=== PATIENT | male | born 1975 | race Caucasian/White ===

== ENCOUNTER 2023-06-21 11:25 | Inpatient (IN) | payer SELFPAY ==
[~2023-06-21] VITALS: Ht 180 cm; Wt 86.1 kg
--- NOTE | 2023-06-21 11:31 | ED Chest Pain ---
General Stated Complaint: CHEST PAIN History of Present Illness Date Seen by Provider: Jun 21, 2023 Time Seen by Provider: 11:31 Initial Comments 47-year-old male brought in by EMS with chest pain. Patient developed chest pain approximately 10:10 AM. Patient reports that it started out with pain in his mid chest and then he developed pain that went to his left shoulder left arm and tingling down his arm. Patient denies any prior history of cardiac events. EMS provided patient with 324 mg of aspirin and put on Nitropaste. He reports that the Nitropaste gave him significant relief. EKG in the field was faxed that showed likely ST elevation in the lateral leads. Allergies and Home Medications Allergies Coded Allergies: No Known Drug Allergies (Unverified , 06/21/23) Patient Home Medication List Home Medication List Reviewed: Yes Review of Systems Review of Systems Constitutional: see HPI Respiratory: Denies Cough Cardiovascular: Chest Pain Gastrointestinal: See HPI Genitourinary: See HPI Musculoskeletal: see HPI Skin: see HPI Physical Exam Vital Signs Vital Signs - First Documented 06/21/23 11:28 Pulse 67 Resp 18 B/P (MAP) 181/125 (143) Pulse Ox 98 Capillary Refill : Height, Weight, BMI Height: '" Weight: lbs. oz. kg; BMI Method: General Appearance: Mild Distress Neck: Normal Inspection Respiratory: Lungs Clear, Normal Breath Sounds Cardiovascular: Regular Rate, Rhythm, No Edema Gastrointestinal: Non Tender, Soft Extremity: Normal Capillary Refill, Normal Inspection, Normal Range of Motion Neurologic/Psychiatric: Alert, Oriented x3, No Motor/Sensory Deficits Critical Care Note Critical Care Total Time (minutes) 20 Progress/Results/Core Measures Results/Orders Lab Results Laboratory Tests Test 06/21/23 11:38 Range/Units White Blood Count 6.5 4.3-11.0 10^3/uL Red Blood Count 4.96 4.30-5.52 10^6/uL Hemoglobin 15.3 13.3-17.7 g/dL Hematocrit 43 40-54 % Mean Corpuscular Volume 87 80-99 fL Mean Corpuscular Hemoglobin 31 25-34 pg Mean Corpuscular Hemoglobin Concent 36 32-36 g/dL Red Cell Distribution Width 11.8 10.0-14.5 % Platelet Count 369 130-400 10^3/uL Mean Platelet Volume 9.0 9.0-12.2 fL Immature Granulocyte % (Auto) 0 % Neutrophils (%) (Auto) 69 42-75 % Lymphocytes (%) (Auto) 23 12-44 % Monocytes (%) (Auto) 6 0-12 % Eosinophils (%) (Auto) 1 0-10 % Basophils (%) (Auto) 1 0-10 % Neutrophils # (Auto) 4.5 1.8-7.8 10^3/uL Lymphocytes # (Auto) 1.5 1.0-4.0 10^3/uL Monocytes # (Auto) 0.4 0.0-1.0 10^3/uL Eosinophils # (Auto) 0.1 0.0-0.3 10^3/uL Basophils # (Auto) 0.0 0.0-0.1 10^3/uL Immature Granulocyte # (Auto) 0.0 0.0-0.1 10^3/uL Prothrombin Time 12.5 12.2-14.7 SEC INR Comment 0.9 0.8-1.4 Activated Partial Thromboplast Time 34 24-35 SEC Sodium Level 135 135-145 MMOL/L Potassium Level 3.7 3.6-5.0 MMOL/L Chloride Level 103 98-107 MMOL/L Carbon Dioxide Level 16 L 21-32 MMOL/L Anion Gap 16 H 5-14 MMOL/L Blood Urea Nitrogen 12 7-18 MG/DL Creatinine 0.85 0.60-1.30 MG/DL Estimat Glomerular Filtration Rate 107 BUN/Creatinine Ratio 14 Glucose Level 138 H 70-105 MG/DL Calcium Level 9.7 8.5-10.1 MG/DL Corrected Calcium 8.5-10.1 MG/DL Magnesium Level 2.1 1.6-2.4 MG/DL Total Bilirubin 0.6 0.1-1.0 MG/DL Aspartate Amino Transf (AST/SGOT) 22 5-34 U/L Alanine Aminotransferase (ALT/SGPT) 27 0-55 U/L Alkaline Phosphatase 77 40-136 U/L Myoglobin 63.7 10.0-92.0 NG/ML Troponin I 0.057 H <0.028 NG/ML Total Protein 8.4 H 6.4-8.2 GM/DL Albumin 4.8 H 3.2-4.5 GM/DL My Orders Orders - MOLINA,KOFFI L DO Ekg Tracing (06/21/23 11:27) Cbc And Automated Diff (06/21/23 11:31) Magnesium (06/21/23 11:31) Chest 1 View, Ap/Pa Only (06/21/23 11:31) Ekg Tracing (06/21/23 11:31) Comprehensive Metabolic Panel (06/21/23 11:31) Myoglobin Serum (06/21/23 11:31) Protime With Inr (06/21/23 11:31) Partial Thromboplastin Time (06/21/23 11:31) Monitor-Rhythm Ecg Trace Only (06/21/23 11:31) Lipid Panel (06/22/23 06:00) Ed Iv/Invasive Line Start (06/21/23 11:31) Troponin I Tama (06/21/23 11:31) Fentanyl Injection (Fentanyl Injection (06/21/23 11:33) Initiate Heparin Acs Protocol (06/21/23 11:50) Clopidogrel Tablet (Clopidogrel Tablet) (06/21/23 12:00) Heparin (Bolus Per Protocol) (Heparin (B (06/21/23 12:00) Heparin Drip 62616 Unit/500ml (Heparin (06/21/23 12:00) Heparin (Bolus Per Protocol) (Heparin (B (06/21/23 12:00) Initiate Heparin Acs Protocol (06/21/23 11:53) Vital Signs/I&O 06/21/23 06/21/23 11:28 11:58 Pulse 67 67 Resp 18 18 B/P (MAP) 181/125 (143) 181/125 Pulse Ox 98 98 Progress Progress Note : Progress Note Patient with EKG that was questionable for ST elevation in leads V3 through 6 versus early repolarization. Based on patient's his symptoms of chest pain with radiation to the left arm neck and improvement with nitro patient to be taken to the Game Designer/Creative Director. I discussed with Dr. Perla who was in agreement. Patient was given Plavix and started on a heparin drip and then taken to the Game Designer/Creative Director. He was stable while in the ER. Departure Impression Primary Impression: ST elevation MO (STEMI) Qualified Codes: I21.3 - ST elevation (STEMI) myocardial infarction of unspe cified site Disposition: ADMITTED INPATIENT Condition: Critical KOFFI MOLINA DO Jun 21, 2023 11:31
[2023-06-21] MEDS: fentaNYL INJECTION 100 MCG/2 ML VIAL IVP STA ×2 (11:45→11:59)
[2023-06-21 11:48] LABS: BASOPHILS % (AUTO) 1 % (0-10); EOSINOPHILS # (AUTO) 0.1 10^3/uL (0.0-0.3); EOSINOPHILS % (AUTO) 1 % (0-10); HEMATOCRIT 43 % (40-54); HEMOGLOBIN 15.3 g/dL (13.3-17.7); LYMPHOCYTES # (AUTO) 1.5 10^3/uL (1.0-4.0); LYMPHOCYTES % (AUTO) 23 % (12-44); MEAN CORPUSCULAR HEMOGLOBIN 31 pg (25-34); MEAN CORPUSCULAR HGB CONC 36 g/dL (32-36); MEAN CORPUSCULAR VOLUME 87 fL (80-99); MONOCYTES # (AUTO) 0.4 10^3/uL (0.0-1.0); MONOCYTES % (AUTO) 6 % (0-12); NEUTROPHILS # (AUTO) 4.5 10^3/uL (1.8-7.8); NEUTROPHILS % (AUTO) 69 % (42-75); PLATELET COUNT 369 10^3/uL (130-400); WHITE BLOOD COUNT 6.5 10^3/uL (4.3-11.0)
[2023-06-21] MEDS ORDERED: NITRO DRIP 25000 MCG/D5W 250 ML IV ONE (11:50)
[2023-06-21] MEDS ORDERED: LIDOCAINE 1% INJ 20 ML VIAL ONE (11:50)
[2023-06-21] MEDS ORDERED: HEParin 1000 UNIT/ML (10ML VIAL) FOR BOLUS ONE (11:50)
[2023-06-21] MEDS ORDERED: NS IV 1000 ML 1,000 ML ONE (11:50)
[2023-06-21] MEDS ORDERED: MIDAZOLAM INJ 5 MG/5 ML VIAL ONE (11:50)
[2023-06-21] MEDS ORDERED: fentaNYL INJECTION 100 MCG/2 ML VIAL ONE (11:50)
[2023-06-21] MEDS ORDERED: HEParin (CATH LAB) 2,000 ML IV ONE (11:50)
[2023-06-21] MEDS ORDERED: EPTIFIBATIDE BOLUS 20 ML IV ONE (11:51)
[2023-06-21 11:55] LABS: ALBUMIN 4.8 GM/DL (3.2-4.5)
[2023-06-21 11:56] LABS: CHLORIDE 103 MMOL/L (98-107); POTASSIUM 3.7 MMOL/L (3.6-5.0); SODIUM 135 MMOL/L (135-145)
[2023-06-21 11:57] LABS: CALCIUM 9.7 MG/DL (8.5-10.1); INR 0.9 (0.8-1.4); PROTHROMBIN TIME PATIENT 12.5 SEC (12.2-14.7)
[2023-06-21 11:58] VITALS: BP 181/125
[2023-06-21 11:58] LABS: GLUCOSE 138 MG/DL (70-105); TOTAL PROTEIN 8.4 GM/DL (6.4-8.2)
--- NOTE | 2023-06-21 11:58 | Diagnostic Imaging Report ---
INDICATION: Chest pain. COMPARISON: None FINDINGS: Single frontal radiographic view of the chest was obtained and demonstrates normal cardiac silhouette and pulmonary vasculature. Cluster micronodules is noted within the right upper lobe. These appear to be likely calcified. Remainder of the lungs are clear. There is no focal consolidation, large effusion, or pneumothorax. Osseous structures show no gross acute abnormalities. IMPRESSION: 1. No evidence of failure or focal infiltrate. 2. Probable cluster of calcified granulomas within the right upper lobe. Further characterization with CT of the chest however is advised and could be performed on a nonemergent basis. Dictated by: Dictated on workstation # [id number]
[2023-06-21 11:59] LABS: CARBON DIOXIDE 16 MMOL/L (21-32)
[2023-06-21 12:00] LABS: BILIRUBIN,TOTAL 0.6 MG/DL (0.1-1.0)
[2023-06-21] MEDS ORDERED: HEParin 1000 UNIT/ML (10ML VIAL) FOR BOLUS IV SCH (12:00)
[2023-06-21] MEDS ORDERED: HEParin 1000 UNIT/ML (10ML VIAL) FOR BOLUS IV PRN (12:00)
[2023-06-21] MEDS ORDERED: HEParin DRIP 25000 UNIT/500ML 500 ML IV SCH (12:00)
[2023-06-21] MEDS ORDERED: CLOPIDOGREL 300 MG TABLET PO ONE (12:00)
[2023-06-21 12:02] LABS: ALKALINE PHOSPHATASE 77 U/L (40-136); CREATININE SERUM 0.85 MG/DL (0.60-1.30); GFR ESTIMATED 107
[2023-06-21 12:03] LABS: BUN/CREATININE RATIO 14
[2023-06-21 12:05] LABS: ALANINE AMINOTRANSFERASE 27 U/L (0-55); MAGNESIUM 2.1 MG/DL (1.6-2.4)
[2023-06-21] MEDS ORDERED: niCARdipine IV PYXIS DRIP KIT = 50 MG X 2 VIALS ONE (12:37)
[2023-06-21] MEDS ORDERED: NS (IVPB) 250 ML 250 ML ONE (12:37)
--- NOTE | 2023-06-21 13:22 | Cardiac Cath Report ---
CARDIAC CATHETERIZATION DATE OF PROCEDURE: 06-21-23 INDICATION: Acute anterior wall STEMI HISTORY: The patient is a 47 year old male with acute anterior wall STEMI PROCEDURES PERFORMED: 1. Card cath and LV angio 2. PCI to LAD PROCEDURE DESCRIPTION: After informed consent and in the fasting state, left heart catheterization was performed through the R femoral artery utilizing a 6 [place] system by percutaneous approach. 6F JL4 guide of L cor angio, 6F JR4 for R cor angio, 6F pigtail of LHC and LV angio HEMODYNAMICS: LVEDP (post cor angio and PCI) was 14 mmHg, no significant pressure gradient on pullback across the aortic valve CORONARY ANGIOGRAPHY: Cor calcium present in all coronary vessels Left main coronary artery: Ok Left anterior descending coronary artery: 99% mid-vessel stenosis with LUISA 2 antegrade flow, large D1 with mild plaques, small D2 with 90% ostial stenosis Left circumflex coronary artery: small, non-dominant, diffuse plaques Right coronary artery: large, dominant, 70% distal stenosis (in the posterolateral portion of RCA) LV ANGIO: LVEF 50% with apical hypokinesis PERCUTANEOUS CORONARY INTERVENTION: Guide: 6F JL4 Wire: BMW Balloon: 2.5 x 20 Stent: Skypoint 2.5 x 18 (deployed at 12 alondra) Pre-PCI: 99% mid LAD with LUISA 2 flow Post-PCI: 0% residual with LUISA 3 flow [id number] time: 50 min IMPRESSION: 1. Multivessel CAD as noted above 2. Successful PCI to culprit lesion: mid LAD 99% with LUISA 2 flow -> 0% residual with LUISA 3 flow (post deployment of Skypoint 2.5 x 18 mm LIZY) 3. LVEDP 14 mmHg 4. LVEF 50% with apical hypokinesis JOSE SAVAGE MD FACP [facility] Jun 21, 2023 13:22
--- NOTE | 2023-06-21 13:40 | Cardiology History & Physical ---
HPI-Cardiology Cardiology H&P Date of Admission 06/21/23 Primary Care Physician Attending Physician: Magnolia Petty MD, MA [facility] Attending Physician Consulting Physician ORI CC: Chest pain HPI 47 yo man with onset of chest pain approx 1.5 hours prior to presentation to our ER. Chest pain mid-sternal, L parasternal, and in the L shoulder with radiation down the arm, mod to mod-sev in intensity, associated with some diaphoresis, no palp or syncope, never experienced before, improved with nitro given by EMT. ECG obtained by EMT showed ST elevation in ángel-lat leads. Given ASA 324, clopidogrel 600, and heparin 5000 in the ER and taken to the photo lab specialist for emergency cath. We did discuss the rationale, procedure, risks, benefits, potential complications, and alternatives with Mr. Johnson prior to cath and he provided informed consent for cath and, if needed, ad hoc PCI. Culprit lesion was found to be mid-LAD 99% stenosis that was successfully intervened on. Review of Systems-Cardiology Review of Systems Constitutional: No lightheadedness, No tiredness, No weight loss, No weight gain Eyes: No vision change Ears/Nose/Throat: No ear discharge, No nasal drainage, No recent hearing loss Respiratory: No shortness of breath, No stridor, No wheezing Cardiovascular: As described under HPI, palpitations Gastrointestinal: No diarrhea, No nausea Genitourinary: No dysuria, No hematuria, No urine frequency changes Musculoskeletal: No back pain Skin: No rash, No ulcerations Psychiatric/Neurological: No seizure, No focal weakness, No syncope Hematologic: No bleeding abnormalities LUX-Mczqzl-Scylgk Hx Patient Social History Smoking Status: Former Smoker Alcohol Use?: Yes Past Medical History PMH As described under Assessment. Family Medical History Family Medical History: He does not report fam h/o early CAD or SCD Allergies and Home Medications Allergies Coded Allergies: No Known Drug Allergies (Unverified , 06/21/23) Patient Home Medication List Home Medication List Reviewed: Yes Physical Exam-Cardiology Physical Exam Vital Signs/I&O 06/21/23 06/21/23 11:28 11:58 Pulse 67 67 Resp 18 18 B/P (MAP) 181/125 (143) 181/125 Pulse Ox 98 98 Capillary Refill : Constitutional: AAO x 3, well-developed, well-nourished HEENT: EOMI; No xanthelasmas are seen Neck: carotid pulses are 2 + bilaterally, with good upstrokes Respiratory: No accessory muscle use, No respiratory distress; chest expansion is symmetric, chest is bilaterally symmetric, other (good, bilat air entry) Cardiovascular: regular rate-rhythm, S1 and S2, systolic murmur (soft TENNILLE at card base) Gastrointestinal: No tender; soft; No guarding, No rebound; audible bowel sounds Extremities: No clubbing, No significant edema Neurologic/Psychiatric: oriented x 3, other (moves all limbs equally) Skin: normal color, warm/dry; No rash on exposed areas, No ulcerations on exposed areas Data Review Labs Laboratory Tests 06/21/23 11:38: White Blood Count 6.5, Red Blood Count 4.96, Hemoglobin 15.3, Hematocrit 43, Mean Corpuscular Volume 87, Mean Corpuscular Hemoglobin 31, Mean Corpuscular Hemoglobin Concent 36, Red Cell Distribution Width 11.8, Platelet Count 369, Mean Platelet Volume 9.0, Immature Granulocyte % (Auto) 0, Neutrophils (%) (Auto) 69, Lymphocytes (%) (Auto) 23, Monocytes (%) (Auto) 6, Eosinophils (%) (Auto) 1, Basophils (%) (Auto) 1, Neutrophils # (Auto) 4.5, Lymphocytes # (Auto) 1.5, Monocytes # (Auto) 0.4, Eosinophils # (Auto) 0.1, Basophils # (Auto) 0.0, Immature Granulocyte # (Auto) 0.0, Prothrombin Time 12.5, INR Comment 0.9, Activated Partial Thromboplast Time 34, Sodium Level 135, Potassium Level 3.7, Chloride Level 103, Carbon Dioxide Level 16L, Anion Gap 16H, Blood Urea Nitrogen 12, Creatinine 0.85, Estimat Glomerular Filtration Rate 107, BUN/Creatinine Ratio 14, Glucose Level 138H, Calcium Level 9.7, Corrected Calcium , Magnesium Level 2.1, Total Bilirubin 0.6, Aspartate Amino Transf (AST/SGOT) 22, Alanine Aminotransferase (ALT/SGPT) 27, Alkaline Phosphatase 77, Myoglobin 63.7, Troponin I 0.057H, Total Protein 8.4H, Albumin 4.8H Laboratory Tests 06/21/23 11:38 A/P-Cardiology Assessment/Admission Diagnosis Acute anterior STEMI - Card cath on : Cor calcium present in all coronary vessels. Left main coronary artery: Ok. Left anterior descending coronary artery: 99% mid-vessel stenosis with LUISA 2 antegrade flow, large D1 with mild plaques, small D2 with 90% ostial stenosis. Left circumflex coronary artery: small, non-dominant, diffuse plaques. Right coronary artery: large, dominant, 70% distal stenosis (in the posterolateral portion of RCA). LVEF 50% with apical hypokinesis. LVEDP 14 mmHg - PCI on 06/21/23: mid-LAD 99% with LUISA 2 flow -> 0% residual with LUISA 3 flow (post deployment of Skypoint 2.5 x 18 mm LIZY) Admission Status: Inpatient Order (span 2 midnights) Reason for Inpatient Admission: STEMI Discussion and Recomendations * DAPT * Statin * Beta-daniel * Discussed findings in detail with him Clinical Quality Measures AMI/AHF: ASA po Prior to arrival: Yes MAGNOLIA PETTY MD FACP [facility] Jun 21, 2023 13:40
--- NOTE | 2023-06-21 14:13 | Tele-ICU Consult ---
History of Present Illness History of Present Illness Date Seen by Provider: Jun 21, 2023 Time Seen by Provider: 14:08 Date of Admission [facility] Critical Care Consult 47yo M came to ED with cc of severe chest pain mid sternal and radiating down left arm, GIven ASA/Plavix/Je[arom amd semt tp CC: found to have 99% lesion in LAD, underwent PCTA which was successful. EKG showed ST seg elevation in aterior lateral leads Currently on ASA, Plavix, statin, beta daniel PMH has not seen any physician in years. Had surgery on C5-6? Does not know about DM, HLD, HTN, no family Hx of CAD, dosen't know for sure Allergies and Home Medications Allergies Coded Allergies: No Known Drug Allergies (Unverified , 06/21/23) Past Medical/Social/Family Hx Patient Social History Tobacco Use?: No Smoking Status: Former Smoker Substance use?: No Alcohol Use?: Yes Alcohol Frequency: Once in a while Current Status Advance Directives: No Preferred Spoken Language: Montenegrin Review of Systems Constitutional: see HPI EENTM: see HPI Respiratory: see HPI Cardiovascular: see HPI Gastrointestinal: see HPI Genitourinary: see HPI Musculoskeletal: see HPI Skin: see HPI Psychiatric/Neurological: See HPI Focused Exam Height, Weight, BMI Height: '" Weight: lbs. oz. kg; 26.00 BMI Method: Exam Exam Patient acknowledged, consented, and participated in this virtual visit which was conducted using real time audio/video Vital Signs Date Time Temp Pulse Resp B/P (MAP) Pulse Ox O2 Delivery O2 Flow Rate FiO2 06/21/23 13:42 78 06/21/23 11:58 67 18 181/125 98 06/21/23 11:28 67 18 181/125 (143) 98 Height & Weight Height: '" Weight: lbs. oz. kg; 26.00 BMI Method: General Appearance: No Apparent Distress, Mild Distress Neck: Normal Inspection Respiratory: Lungs Clear, Normal Breath Sounds Cardiovascular: Regular Rate, Rhythm, No Edema Gastrointestinal: normal bowel sounds, non tender, soft Extremity: Normal Capillary Refill, Normal Inspection, Normal Range of Motion Neurologic/Psychiatric: Alert, Oriented x3, No Motor/Sensory Deficits Results Lab Laboratory Tests 06/21/23 11:38 Assessment/Plan Assessment/Plan STEMI, s/p PCI of LAD will continue on present meds, cardiology to9 follow,echo in am Critical Care: Critically Ill Patient Time spent with patient (mins): 25 KENZIE BURROWS MD Jun 21, 2023 14:13
[2023-06-21] MEDS ORDERED: ATROPINE INJ 0.4 MG/ML SDV ONE (14:33)
[2023-06-21] MEDS: ACETAMINOPHEN 325 MG TABLET PO PRN (17:54)
[2023-06-21] MEDS ORDERED: morphine INJ 10 MG/ML 1ML (SYR OR VIAL) IVP STA (21:17)
[2023-06-21] MEDS ORDERED: ZOLPIDEM 5 MG (AMBIEN) TAB PO ONE (21:30)
[2023-06-22 04:59] LABS: BASOPHILS % (AUTO) 1 % (0-10); EOSINOPHILS # (AUTO) 0.1 10^3/uL (0.0-0.3); EOSINOPHILS % (AUTO) 2 % (0-10); HEMATOCRIT 43 % (40-54); HEMOGLOBIN 14.9 g/dL (13.3-17.7); LYMPHOCYTES # (AUTO) 1.9 10^3/uL (1.0-4.0); LYMPHOCYTES % (AUTO) 28 % (12-44); MEAN CORPUSCULAR HEMOGLOBIN 31 pg (25-34); MEAN CORPUSCULAR HGB CONC 35 g/dL (32-36); MEAN CORPUSCULAR VOLUME 88 fL (80-99); MEAN PLATELET VOLUME 9.3 fL (9.0-12.2); MONOCYTES # (AUTO) 0.5 10^3/uL (0.0-1.0); MONOCYTES % (AUTO) 8 % (0-12); NEUTROPHILS # (AUTO) 4.2 10^3/uL (1.8-7.8); NEUTROPHILS % (AUTO) 62 % (42-75); PLATELET COUNT 340 10^3/uL (130-400); WHITE BLOOD COUNT 6.8 10^3/uL (4.3-11.0)
[2023-06-22 05:25] LABS: ALBUMIN 4.5 GM/DL (3.2-4.5); BILIRUBIN,TOTAL 0.6 MG/DL (0.1-1.0); CALCIUM 9.3 MG/DL (8.5-10.1); CREATININE SERUM 0.91 MG/DL (0.60-1.30); MAGNESIUM 2.2 MG/DL (1.6-2.4); POTASSIUM 4.2 MMOL/L (3.6-5.0); TOTAL PROTEIN 7.7 GM/DL (6.4-8.2)
[2023-06-22] MEDS ORDERED: CLOPIDOGREL 75 MG TABLET PO SCH (09:00)
[2023-06-22] MEDS ORDERED: ASPIRIN 81 MG CHEWABLE TABLET PO SCH (09:00)
[2023-06-22] MEDS: ACETAMINOPHEN 325 MG TABLET PO PRN (12:14)
[2023-06-22] MEDS ORDERED: ASPI81TA64 PO (12:40)
[2023-06-22] MEDS ORDERED: METO50TA7 PO (12:40)
[2023-06-22] MEDS ORDERED: ATOR80TA76 PO (12:40)
[2023-06-22] MEDS ORDERED: CLOP75TA28 PO (12:40)
--- NOTE | 2023-06-22 12:43 | Discharge Inst-Cardiology ---
Discharge Inst-Cardiac Discharge Medications New Medications: Metoprolol Succinate (Metoprolol Succinate) 50 Mg Tab.er.24h 50 MG PO DAILY, #30 TAB 3 Refills Aspirin (Children's Aspirin) 81 Mg Tab.chew 81 MG PO DAILY for 30 Days, #30 TAB 3 Refills Atorvastatin Calcium (Atorvastatin Calcium) 80 Mg Tablet 80 MG PO HS for 30 Days, #30 TAB 3 Refills Clopidogrel Bisulfate (Clopidogrel) 75 Mg Tablet 75 MG PO DAILY for 30 Days, #30 TAB 3 Refills Patient Instructions Patient Instructions: Must establish Cardiology f/u at home within a week Must obtain hepatic, lipid, and renal profiles with pcp or repairer controller tester in 4 - 5 weeks JOSE SAVAGE MD [facility] Jun 22, 2023 12:43
--- NOTE | 2023-06-22 12:44 | Discharge Inst-Post CATH ---
Discharge Inst-CATH/EP Post Cardiac Cath/EP D/C Inst Follow Up/Plan Advised of the following: Must establish Cardiology f/u at home within a week Must obtain hepatic, lipid, and renal profiles with pcp or logistics coordinator in 4 - 5 weeks ACTIVITY * Go Home directly and rest. * Limit activity of the leg (or wrist if it was used) for 7 days including aerobics, swimming, jogging, bicycling, etc. * Restrict stair-climbing for 7 days if possible, if not, climb up with your non-cath leg, then bring together on the same step. * Avoid lifting, pushing, pulling or excessive movement of the affected extremity for 7 days. * Customary sexual activity may be resumed after 2 days-use caution not to use a position that strains or causes pain to the affected extremity. * No driving for 24 hours. * NO SMOKING. * Avoid straining for bowel movements for 7 days. * Gentle walking on level ground is allowed. * Returning to work will depend on the type of procedure and the results. Your doctor will discuss this with you. CALL YOUR DOCTOR FOR ANY OF THE FOLLOWING: *If bleeding from the puncture site occurs- Apply gentle pressure to site with clean cloth and call your doctor or EMS. * If a knot or lump forms under the skin, increases in size, or causes pain. * If bruising appears to be worsening or moving further down your leg instead of disappearing. * Temperature above 101 F. CARE OF YOUR GROIN INCISION; * Bruising or purple discoloration of the skin near the puncture site is common. * You may shower only, no bathtub bathing for 5 days. Be careful to avoid slipping as your leg may feel stiff. * If a closure device was used on your femoral artery, please see the attached guide regarding care of the device and your leg. * Leave dressing on FOR 24 hours. CARE OF YOUR WRIST INCISION; * Bruising or purple discoloration of the skin near the puncture site is common. * You may shower. * DO NOT submerge wrist. * Leave dressing on FOR 24 hours. JOSE SAVAGE MD FACP [facility] Jun 22, 2023 12:44
--- NOTE | 2023-06-22 12:52 | Progress Note - Cardiology ---
Cardiology SOAP Progress Note Subjective: No cp or palp or syncope or shortness of breath No groin or leg discomfort or discoloration No leg swelling No focal or generalized weakness No n/v/d Insists on going home. Refuses to stay in the hospital any longer Objective: I&O/Vital Signs 06/22/23 06/22/23 06/22/23 06/22/23 01:00 02:00 03:00 04:00 Pulse 75 65 61 95 B/P (MAP) 102/72 (82) 120/73 (89) 113/74 (87) 130/102 (111) Pulse Ox 95 95 95 95 O2 Delivery Room Air Room Air Room Air Room Air 06/22/23 06/22/23 06/22/23 06/22/23 04:00 04:15 05:00 06:00 Temp 36.3 Pulse 63 62 B/P (MAP) 140/103 (115) Pulse Ox 97 O2 Delivery Room Air Room Air Room Air 06/22/23 06/22/23 07:00 08:00 Pulse 60 68 B/P (MAP) 151/99 (116) O2 Delivery Room Air 06/22/23 00:00 Intake Total 300 ml Output Total 750 ml Balance -450 ml Groin site without hematoma: Yes Condition: DP/PT pulses palpable Bruising: mild bruising Constitutional: AAO x 3, well-developed, well-nourished Respiratory: No accessory muscle use, No respiratory distress; chest expansion is symmetric, chest is bilaterally symmetric, other (good, bilat air entry) Cardiovascular: regular rate-rhythm, S1 and S2, systolic murmur (soft TENNILLE at card base) Gastrointestional: No tender; soft; No guarding, No rebound; audible bowel sounds Extremities: No clubbing, No significant edema Neurologic/Psychiatric: oriented x 3, other (moves all limbs equally) Skin: normal color, warm/dry; No rash on exposed areas, No ulcerations on exposed areas Results/Procedures: Labs Laboratory Tests 06/22/23 04:31: White Blood Count 6.8, Red Blood Count 4.85, Hemoglobin 14.9, Hematocrit 43, Mean Corpuscular Volume 88, Mean Corpuscular Hemoglobin 31, Mean Corpuscular Hemoglobin Concent 35, Red Cell Distribution Width 12.1, Platelet Count 340, Mean Platelet Volume 9.3, Immature Granulocyte % (Auto) 0, Neutrophils (%) (Auto) 62, Lymphocytes (%) (Auto) 28, Monocytes (%) (Auto) 8, Eosinophils (%) (Auto) 2, Basophils (%) (Auto) 1, Neutrophils # (Auto) 4.2, Lymphocytes # (Auto) 1.9, Monocytes # (Auto) 0.5, Eosinophils # (Auto) 0.1, Basophils # (Auto) 0.0, Immature Granulocyte # (Auto) 0.0 06/22/23 04:51: Sodium Level 139, Potassium Level 4.2, Chloride Level 104, Carbon Dioxide Level 24, Anion Gap 11, Blood Urea Nitrogen 10, Creatinine 0.91, Estimat Glomerular Filtration Rate 104, BUN/Creatinine Ratio 11, Glucose Level 98, Calcium Level 9.3, Corrected Calcium 8.9, Magnesium Level 2.2, Total Bilirubin 0.6, Aspartate Amino Transf (AST/SGOT) 59H, Alanine Aminotransferase (ALT/SGPT) 30, Alkaline Phosphatase 76, Total Protein 7.7, Albumin 4.5, Triglycerides Level 150H, Cholesterol Level 267H, LDL Cholesterol Direct 209H, VLDL Cholesterol 30, HDL Cholesterol 44, Thyroid Stimulating Hormone (TSH) 2.88 Laboratory Tests 06/21/23 11:38 06/22/23 04:31 06/22/23 04:51 A/P: Assessment: Acute anterior STEMI - Card cath on : Cor calcium present in all coronary vessels. Left main coronary artery: Ok. Left anterior descending coronary artery: 99% mid-vessel stenosis with LUISA 2 antegrade flow, large D1 with mild plaques, small D2 with 90% ostial stenosis. Left circumflex coronary artery: small, non-dominant, diffuse plaques. Right coronary artery: large, dominant, 70% distal stenosis (in the posterolateral portion of RCA). LVEF 50% with apical hypokinesis. LVEDP 14 mmHg - PCI on 06/21/23: mid-LAD 99% with LUISA 2 flow -> 0% residual with LUISA 3 flow (post deployment of Skypoint 2.5 x 18 mm LIZY) - No post-cath bleeding - Echo on 06/22/23: LVEF 55-60%, mild apical hypokinesis, PASP 20-25 mmHg Hyperlipidemia Hypertension Plan: * Advised to stay in the hospital one more day. Discussed. He refuses * Again discussed the findings of cath and PCI done yesterday. Discussed findings of echo done today * Advised immediate establishment of cardiology f/u and transfer of our records to them upon his return home. He understands that he would need further f/u on CAD * Continue treatment with DAPT, statin, and beta-daniel * Advised to be compliant with meds. Rationale, pros and cons of meds reviewed. Advised not to stop any med w/o letting his physicians know so that alternative can be suggested * Advised lipid, hepatic and renal profiles with pcp or strategy manager within 4-5 weeks * He understands all of the above and states compliance Clinical Quality Measures AMI/AHF: ASA po Prior to arrival: Yes JOSE SAVAGE MD FACP [facility] Jun 22, 2023 12:52
--- NOTE | 2023-06-22 12:57 | Cardiology Discharge Summary ---
Diagnosis/Chief Complaint Date of Admission Jun 21, 2023 at 13:29 Date of Discharge 06-22-23 Final/Discharge Diagnosis Acute anterior STEMI - Card cath on : Cor calcium present in all coronary vessels. Left main coronary artery: Ok. Left anterior descending coronary artery: 99% mid-vessel stenosis with LUISA 2 antegrade flow, large D1 with mild plaques, small D2 with 90% ostial stenosis. Left circumflex coronary artery: small, non-dominant, diffuse plaques. Right coronary artery: large, dominant, 70% distal stenosis (in the posterolateral portion of RCA). LVEF 50% with apical hypokinesis. LVEDP 14 mmHg - PCI on 06/21/23: mid-LAD 99% with LUISA 2 flow -> 0% residual with LUISA 3 flow (post deployment of Skypoint 2.5 x 18 mm LIZY) - No post-cath bleeding - Echo on 06/22/23: LVEF 55-60%, mild apical hypokinesis, PASP 20-25 mmHg Hyperlipidemia Hypertension Chief Complaint/HPI Chief Complaint/HPI CC: Chest pain HPI 47 yo man with onset of chest pain approx 1.5 hours prior to presentation to our ER. Chest pain mid-sternal, L parasternal, and in the L shoulder with radiation down the arm, mod to mod-sev in intensity, associated with some diaphoresis, no palp or syncope, never experienced before, improved with nitro given by EMT. ECG obtained by EMT showed ST elevation in ángel-lat leads. 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 We did discuss the rationale, procedure, risks, benefits, potential complications, and alternatives with Mr. Johnson prior to cath and he provided informed consent for cath and, if needed, ad hoc PCI. Culprit lesion was found to be mid-LAD 99% stenosis that was successfully intervened on. Please refer to our progress note of today's date (06/22/23) for condition at discharge and extensive instructions provided to him. Discharge Summary Discussion & Recommendations Home Medications Reviewed patient Home Medication Reconciliation performed by pharmacy medication reconciliations donor services technician and/or nursing. Patients Allergies have been reviewed. Discharge Home Medications: Reviewed and agree with Discharge Medication list on patient's Discharge Instruction sheet Instructions to patient/family Advised of the following: Must establish Cardiology f/u at home within a week Must obtain hepatic, lipid, and renal profiles with pcp or engraving operator in 4 - 5 weeks Clinical Quality Measures AMI/AHF: ASA po Prior to arrival: Yes JOSE SAVAGE MD [facility] Jun 22, 2023 12:57
== END 2023-06-22 13:30 | disposition home or self-care (01) | DRG 247 ==
LOC: ER 11:27 → CATH 11:58 → ICU 13:29
PROVIDERS: ADMIT Internal Medicine Cardiovascular Disease; ATTEND Internal Medicine Cardiovascular Disease
PROC: 027034Z Dilation of Coronary Artery, One Artery with Drug-eluting Intraluminal Device, Percutaneous Approach (ICD-10-PCS; principal; 2023-06-21)
PROC: 4A023N7 Measurement of Cardiac Sampling and Pressure, Left Heart, Percutaneous Approach (ICD-10-PCS; 2023-06-21)
PROC: B2111ZZ Fluoroscopy of Multiple Coronary Arteries using Low Osmolar Contrast (ICD-10-PCS; 2023-06-21)
PROC: B2151ZZ Fluoroscopy of Left Heart using Low Osmolar Contrast (ICD-10-PCS; 2023-06-21)
DX: I21.09 ST elevation (STEMI) myocardial infarction involving other coronary artery of anterior wall (principal); I25.10 Atherosclerotic heart disease of native coronary artery without angina pectoris; Z87.891 Personal history of nicotine dependence; I10 Essential (primary) hypertension; E78.5 Hyperlipidemia, unspecified
CPT/HCPCS: 36415; 71045; 80053; 80061; 83735; 83874; 84443; 84484; 85025; 85610; 85730; 93005; 93041; 93306; 93458